=== PATIENT | male | born 1955 | race Caucasian/White ===

== ENCOUNTER 2022-10-04 08:37 | Outpatient (RCR) | payer MEDICARE, OTHER | END 2022-10-20 | disposition home or self-care (01) | LOC: ONC 08:37 → EDBD 08:37 | PROVIDERS: ATTEND Radiology Radiation Oncology | DX: C61 Malignant neoplasm of prostate (principal); I10 Essential (primary) hypertension; E11.9 Type 2 diabetes mellitus without complications | CPT/HCPCS: 99205 ==

== ENCOUNTER 2022-11-24 05:30 | Outpatient (CLI) | payer MEDICARE, OTHER ==
[~2022-11-24] VITALS: Ht 188 cm; Wt 102.2 kg
[2022-11-25] MEDS ORDERED: POTA-51 PO (13:45)
[2022-11-25] MEDS ORDERED: HYDR-3923 PO (13:45)
[2022-11-25] MEDS ORDERED: METF-397 PO (13:45)
[2022-11-25] MEDS ORDERED: LISI2.5T13 PO (13:45)
[2022-11-25] MEDS ORDERED: AMLO-250 PO (13:45)
[2022-11-25] MEDS ORDERED: ALLO100T PO (13:45)
[2022-11-25] MEDS ORDERED: SITA50TA PO (13:45)
== END 2022-11-25 13:54 | disposition home or self-care (01) ==
LOC: PREOP 05:30
PROVIDERS: ATTEND Radiology Radiation Oncology
DX: Z01.818 Encounter for other preprocedural examination (principal)

== ENCOUNTER 2022-12-01 08:50 | Day surgery (SDC) | payer MEDICARE, OTHER ==
[2022-12-01] VITALS (10 sets, daily range): BP systolic 130–159; BP diastolic 72–90
[~2022-12-01] VITALS: Ht 188 cm; Wt 102.2 kg
[~2022-12-01 08:50] MED LIST: ALLO100T PO; AMLO-250 PO; HYDR-3923 PO; LISI2.5T13 PO; METF-397 PO; POTA-51 PO; SITA50TA PO
[2022-12-01] MEDS ORDERED: BACITRACIN OINTMENT 28 GM TUBE ONE (09:51)
--- NOTE | 2022-12-01 09:51 | Progress Note-Pre Operative ---
Pre-Operative Progress Note Date of Available H&P: Nov 23, 2022 Date H&P Reviewed: Dec 01, 2022 Time H&P Reviewed: 09:50 History & Physical: H&P Reviewed, No changes noted Changes from last HP See H&P addendum Pre-Operative Diagnosis: Prostate cancer cT1c, PSa 7.9, [place] 7 (3+4) KARL ARELLANO MD Dec 01, 2022 09:51
[2022-12-01] MEDS ORDERED: CIPR-226 PO (09:57)
[2022-12-01] MEDS ORDERED: ACET-11 PO (09:57)
--- NOTE | 2022-12-01 10:02 | Discharge Inst-Simple/Standard ---
Discharge Inst-Standard Reconcile Patient Problems Problems Reviewed?: Yes Discharge Medications New, Converted or Re-Newed RX: Other ([facility] Patient Instructions/Follow Up Plan of Care/Instructions/FU: 1) one month post implant scan at [facility] cancer center 12/28/22 at 9:00 a.m. 2) one month follow up with Dr. Lazar 01/04/23 at 1:00 p.m. Activity as Tolerated: Yes Discharge Diet: No Restrictions Other Inst to Patient Please instruct patient on pichardo catheter care and self removal on Tuesday12/06/22 in morning. KARL ARELLANO MD Dec 01, 2022 10:01
[2022-12-01] MEDS ORDERED: SEVOFLURANE (ULTANE) 15 ML INHAL SOLN ONE (10:08)
[2022-12-01] MEDS ORDERED: LIDOCAINE PF 2% 5 ML (XYLOCAINE) VIAL ONE (10:09)
[2022-12-01] MEDS ORDERED: fentaNYL INJ 100 MCG/2 ML AMP ONE (10:09)
[2022-12-01] MEDS ORDERED: proPOfol 200 MG/20 ML (DIPRIVAN) VIAL IV ONE (10:09)
[2022-12-01] MEDS ORDERED: MIDAZOLAM 2 MG/2 ML (VERSED) VIAL ONE (10:09)
[2022-12-01] MEDS ORDERED: ONDANSETRON 4 MG/2 ML (SDV) Z0FRAN ONE (10:09)
[2022-12-01] MEDS ORDERED: LACTATED RINGERS 1,000 ML IV PRN (10:15)
[2022-12-01] MEDS ORDERED: ESMOLOL 100 MG/10 ML (BREVIBLOC) VIAL ONE (12:00)
[2022-12-01] MEDS ORDERED: BACITRACIN OINTMENT 28 GM TUBE TOP ONE (12:04)
--- NOTE | 2022-12-01 12:26 | Anesthesia-General Post-Op ---
General Patient Condition Mental Status/LOC: Same as Preop Cardiovascular: Satisfactory Nausea/Vomiting: Absent Respiratory: Satisfactory Pain: Controlled Complications: Absent Post Op Complications Complications None Follow Up Care/Instructions Patient Instructions None needed. Anesthesia/Patient Condition Patient Condition Patient is doing well, no complaints, stable vital signs, no apparent adverse anesthesia problems. No complications reported per nursing. JONATHAN BRIONES CRNA Dec 01, 2022 12:26
[2022-12-01] MEDS ORDERED: fentaNYL INJ 100 MCG/2 ML AMP IVP ONE (12:30)
[2022-12-01] MEDS ORDERED: ONDANSETRON 4 MG/2 ML (SDV) Z0FRAN IVP PRN (12:30)
--- NOTE | 2022-12-01 12:35 | Progress Note-Post Operative ---
Post-Operative Progess Note Surgeon (s)/Woven Wood Shade Assembler (s) Surgeon KARL ARELLANO MD Woven Wood Shade Assembler: Lana SMITH MD Pre-Operative Diagnosis Prostate cancer cT1c, PSa 7.9, [place] 7 (3+4) Post-Operative Diagnosis Same as preop Procedure & Operative Findings Date of Procedure 12/01/22 Procedure Performed/Findings (1) 100% Cesium 131 permanent prostate seed implant (2) Injection of biodegradable stabilized hyaluronic acid of non-animal origin prostate-rectal spacer ([place]el) (3) Cystogram Prostate volume 65.8 cc Anesthesia Type General Estimated Blood Loss Estimated blood loss (mL): minimal Specimens/Packing Specimens Removed none Packing: none KARL ARELLANO MD Dec 01, 2022 12:35
--- NOTE | 2022-12-01 17:56 | Diagnostic Imaging Report ---
INDICATION: Fluoroscopy for brachytherapy. FINDINGS: Fluoroscopy was performed during performance of brachytherapy. 13 seconds of fluoroscopic time was utilized. Single image was obtained demonstrating multiple radiation seeds within the prostate. IMPRESSION: Fluoroscopy for brachytherapy. Dictated by: Dictated on workstation # [id number]
== END 2022-12-01 14:55 | disposition home or self-care (01) ==
LOC: SDC 08:50
PROVIDERS: ATTEND Radiology Radiation Oncology
DX: C61 Malignant neoplasm of prostate (principal); E11.9 Type 2 diabetes mellitus without complications; Z87.891 Personal history of nicotine dependence; Z28.310 Unvaccinated for COVID-19; Z79.84 Long term (current) use of oral hypoglycemic drugs
CPT/HCPCS: 55876; 76000; 76965; 77290; 77318; 77332; 77370; 77470; 77778; 82947; 87081; C1715 ×2; C2643

== ENCOUNTER 2022-12-27 08:33 | Outpatient (RCR) | payer MEDICARE, OTHER ==
[~2022-12-27 08:33] MED LIST changes: +ACET-11 PO; +CIPR-226 PO
== END 2023-01-18 | disposition home or self-care (01) ==
LOC: ONC 08:33
PROVIDERS: ATTEND Radiology Radiation Oncology
DX: Z51.0 Encounter for antineoplastic radiation therapy (principal); C61 Malignant neoplasm of prostate; I10 Essential (primary) hypertension; E11.9 Type 2 diabetes mellitus without complications
CPT/HCPCS: 77290

== ENCOUNTER 2023-05-26 07:48 | Outpatient (RCR) | payer MEDICARE, OTHER ==
[~2023-05-26 07:48] MED LIST changes: +POTA-330 PO; -POTA-51 PO
== END 2023-06-20 | disposition home or self-care (01) ==
LOC: ONC 07:48
PROVIDERS: ATTEND Radiology Radiation Oncology
DX: C61 Malignant neoplasm of prostate (principal); I10 Essential (primary) hypertension; E11.9 Type 2 diabetes mellitus without complications
CPT/HCPCS: 84153; G0463; 36415; 99213